=== PATIENT | female | born 1985 | race Caucasian/White ===

== ENCOUNTER → 2018-04-09 | Outpatient (CLI) | payer OTHER | END | disposition home or self-care (01) | LOC: HKI 14:21 | DX: M25.562 Pain in left knee (principal) | CPT/HCPCS: G0463 ==

== ENCOUNTER → 2018-06-18 | Outpatient (CLI) | payer OTHER | END | disposition home or self-care (01) | LOC: HKI 15:46 | DX: M25.562 Pain in left knee (principal) | CPT/HCPCS: G0463 ==